=== PATIENT | female | born 1950 | race Hispanic/Latino ===

== ENCOUNTER → 2017-08-30 | Outpatient (CLI) | payer OTHER, MEDICARE ==
[~2017-08-30] MED LIST: LISI1TAB13 PO; PANT40TA25 PO
== END | disposition home or self-care (01) ==
LOC: RAH 09:09
PROVIDERS: ATTEND Internal Medicine Gastroenterology
DX: R10.13 Epigastric pain (principal); R11.2 Nausea with vomiting, unspecified
CPT/HCPCS: 76700

== ENCOUNTER → 2017-10-10 | Outpatient (CLI) | payer OTHER, MEDICARE | END | disposition home or self-care (01) | LOC: RAH 10:51 | PROVIDERS: ATTEND Internal Medicine | DX: R10.9 Unspecified abdominal pain (principal); R11.2 Nausea with vomiting, unspecified; R14.0 Abdominal distension (gaseous) | CPT/HCPCS: 78264; A9541 ==

== ENCOUNTER 2018-05-28 22:25 | Emergency (ER) | payer OTHER, MEDICARE ==
[~2018-05-28 22:25] MED LIST changes: +ACET-2743 PO; +DOCU240C25 PO; +ENOX30DI4 SQ; +ESOM40CA PO; +FAMO20TA8 PO; +LISI-613 PO; -LISI1TAB13 PO; +LORA0.5T2 PO; +METO10TA41 PO; +ONDA8TAB5 PO; +TRAM50TA4 PO
[2018-05-28 22:52] LABS: APPEARANCE,URINE Clear (CLEAR); BILIRUBIN,URINE Moderate (NEGATIVE); COLOR,URINE Dark Yellow (YELLOW); GLUCOSE, URINE (UA) Negative (NEGATIVE); KETONES,URINE 15 mg/dL (NEGATIVE); LEUKOCYTE ESTERASE ,URINE Trace (NEGATIVE); NITRATE,URINE Negative (NEGATIVE); OCCULT BLOOD,URINE Negative (NEGATIVE); PROTEIN,URINE Trace (NEGATIVE)
[2018-05-28 23:10] LABS: BACTERIA,URINE Few /HPF (None Seen); RBC,URINE 0-1 /HPF (0-1); WBC,URINE 0-1 /HPF (0-1)
[2018-05-28 23:11] LABS: MUCUS,URINE Few LPF (None Seen)
[2018-05-28 23:23] LABS: BASOPHILS % (AUTO) 0.4 % (0.0-5.0); EOSINOPHILS % (AUTO) 0.8 % (0.0-8.0); HEMATOCRIT 33.6 % (36-48); LYMPHOCYTES % (AUTO) 8.5 % (21.0-51.0); MEAN CORPUSCULAR HEMOGLOBIN 27.1 pg (27.0-33.0); MEAN CORPUSCULAR HGB CONC 32.1 g/dL (32.0-36.0); MEAN CORPUSCULAR VOLUME 84.4 fL (79-99); MONOCYTES % (AUTO) 7.1 % (3.0-13.0); NEUTROPHILS % (AUTO) 83.2 % (40.0-77.0); PLATELET COUNT (AUTO) 169 K/uL (130-400); RED BLOOD CELL COUNT(AUTO) 3.98 MIL/uL (4.00-5.50); RED CELL DISTRIBUTION WIDTH 14.3 % (11.0-15.5); WHITE BLOOD COUNT (AUTO) 6.9 K/uL (4.8-10.8)
[2018-05-28 23:28] LABS: CREATININE 0.8 mg/dL (0.5-1.5); POTASSIUM 3.7 mmol/L (3.5-5.1)
[2018-05-28 23:32] LABS: BILIRUBIN,TOTAL 0.7 mg/dL (0.2-1.0); TOTAL PROTEIN, SERUM 6.2 g/dL (6.0-8.3)
[2018-05-28] MEDS ORDERED: FAMOTIDINE/PF 20 MG/2 ML VIAL IV ONE (23:54)
[2018-05-28] MEDS ORDERED: SODIUM CHLORIDE 0.9% 1000ML 1,000 ML IV ONE (23:54)
[2018-05-28] MEDS ORDERED: HYOSCYAMINE SULFATE 0.125 MG TAB.SUBL SL ONE (23:54)
[2018-05-29] MEDS ORDERED: SUCRALFATE 1 GM TABLET ONE (01:13)
== END 2018-05-29 03:11 | disposition home or self-care (01) ==
LOC: EDH 22:25
DX: R10.13 Epigastric pain (principal); R11.2 Nausea with vomiting, unspecified; R19.7 Diarrhea, unspecified; I10 Essential (primary) hypertension; E11.9 Type 2 diabetes mellitus without complications; Z98.890 Other specified postprocedural states
CPT/HCPCS: 36415; 74021; 76705; 80053; 81001; 82550; 83690; 85025; 93005; 96361; 96374; 96375; 99284; J3490; J7030

== ENCOUNTER → 2018-06-20 | Outpatient (CLI) | payer OTHER, MEDICARE | END | disposition home or self-care (01) | LOC: RAH 13:13 | PROVIDERS: ATTEND Family Medicine | DX: M79.661 Pain in right lower leg (principal); M79.89 Other specified soft tissue disorders | CPT/HCPCS: 93971 ==

== ENCOUNTER 2018-10-04 14:17 | Emergency (ER) | payer OTHER, MEDICARE ==
[2018-10-04] MEDS ORDERED: CEPHALEXIN 500 MG CAPSULE ONE (14:22)
== END 2018-10-04 15:15 | disposition home or self-care (01) ==
LOC: EDH 14:17
DX: L03.114 Cellulitis of left upper limb (principal); E11.9 Type 2 diabetes mellitus without complications; I10 Essential (primary) hypertension
CPT/HCPCS: 99281

== ENCOUNTER 2018-10-04 18:42 | Emergency (ER) | payer OTHER, MEDICARE | END 2018-10-04 18:55 | disposition home or self-care (01) | LOC: EDH 18:42 | DX: L03.114 Cellulitis of left upper limb (principal); E11.9 Type 2 diabetes mellitus without complications; I10 Essential (primary) hypertension | CPT/HCPCS: 99281 ==

== ENCOUNTER 2018-12-22 20:12 | Inpatient (IN) | payer OTHER, MEDICARE | END 2018-12-26 15:24 | disposition home or self-care (01) | LOC: EDH 20:12 → EDHIP 23:50 → 3CH 12-23 13:28 | DX: K52.9 Noninfective gastroenteritis and colitis, unspecified (principal); I10 Essential (primary) hypertension; E11.9 Type 2 diabetes mellitus without complications ==

== ENCOUNTER 2018-12-30 00:56 | Emergency (ER) | payer OTHER, MEDICARE ==
[2018-12-30 02:38] LABS: BASOPHILS % (AUTO) 0.4 % (0.0-5.0); EOSINOPHILS % (AUTO) 0.6 % (0.0-8.0); HEMATOCRIT 28.8 % (36-48); LYMPHOCYTES % (AUTO) 15.9 % (21.0-51.0); MEAN CORPUSCULAR HEMOGLOBIN 26.4 pg (27.0-33.0); MONOCYTES % (AUTO) 15.7 % (3.0-13.0); NEUTROPHILS % (AUTO) 67.4 % (40.0-77.0); PLATELET COUNT (AUTO) 307 K/uL (130-400); RED CELL DISTRIBUTION WIDTH 16.6 % (11.0-15.5)
[2018-12-30 02:50] LABS: CREATININE 0.6 mg/dL (0.5-1.5); POTASSIUM 3.1 mmol/L (3.5-5.1)
[2018-12-30 02:54] LABS: ALBUMIN 2.6 g/dL (3.5-5.0); BILIRUBIN,TOTAL 0.4 mg/dL (0.2-1.0)
[2018-12-30 02:56] LABS: INR 0.92 (0.85-1.15); PARTIAL THROMBOPLASTIN TIME 25.9 SEC (26.3-35.5); PROTHROMBIN TIME 9.7 SEC (9.6-11.6)
[2018-12-30] MEDS ORDERED: IOHEXOL-350 75 ML VIAL IV ONE (04:28)
[2018-12-30 04:32] LABS: HEMATOCRIT 27.7 % (36-48)
[2018-12-30] MEDS ORDERED: POTASSIUM CHLORIDE 20 MEQ ERTAB PO ONE (07:34)
== END 2018-12-30 07:47 | disposition home or self-care (01) ==
LOC: EDH 00:56
DX: K52.9 Noninfective gastroenteritis and colitis, unspecified (principal); E11.9 Type 2 diabetes mellitus without complications; I10 Essential (primary) hypertension; Z98.51 Tubal ligation status
CPT/HCPCS: 36415; 71046; 71275; 80053; 82550; 84484; 85014; 85018; 85025; 85378; 85610; 85730; 93005; 99285; Q9967

== ENCOUNTER → 2019-03-16 | Outpatient (CLI) | payer OTHER, MEDICARE | END | disposition home or self-care (01) | LOC: OIH 15:50 | PROVIDERS: ATTEND Family Medicine | DX: M16.11 Unilateral primary osteoarthritis, right hip (principal) | CPT/HCPCS: 73502 ==

== ENCOUNTER 2019-07-20 00:58 | Emergency (ER) | payer MEDICARE ==
[2019-07-20] MEDS ORDERED: ACETAMINOPHEN 325 MG TAB ONE (01:32)
[2019-07-20] MEDS ORDERED: HYDRALAZINE HCL 25 MG TABLET ONE (01:32)
== END 2019-07-20 01:50 | disposition home or self-care (01) ==
LOC: EDH 00:58
DX: S90.862A Insect bite (nonvenomous), left foot, initial encounter (principal); I10 Essential (primary) hypertension; E11.9 Type 2 diabetes mellitus without complications; Z90.49 Acquired absence of other specified parts of digestive tract; Z98.890 Other specified postprocedural states; W57.XXXA Bitten or stung by nonvenomous insect and other nonvenomous arthropods, initial encounter; Y93.89 Activity, other specified; Y92.098 Other place in other non-institutional residence as the place of occurrence of the external cause; Y99.8 Other external cause status
CPT/HCPCS: 93005

== ENCOUNTER 2019-09-08 15:00 | Emergency (ER) | payer OTHER, MEDICARE ==
[2019-09-08 15:56] LABS: BASOPHILS % (AUTO) 0.8 % (0.0-5.0); HEMATOCRIT 38.3 % (36-48); LYMPHOCYTES % (AUTO) 34.1 % (21.0-51.0); MEAN CORPUSCULAR HEMOGLOBIN 25.6 pg (27.0-33.0); MEAN CORPUSCULAR HGB CONC 30.3 g/dL (32.0-36.0); MEAN CORPUSCULAR VOLUME 84.4 fL (79-99); MONOCYTES % (AUTO) 8.1 % (3.0-13.0); NEUTROPHILS % (AUTO) 55.7 % (40.0-77.0); PLATELET COUNT (AUTO) 257 K/uL (130-400); RED BLOOD CELL COUNT(AUTO) 4.54 MIL/uL (4.00-5.50); RED CELL DISTRIBUTION WIDTH 18.2 % (11.0-15.5)
[2019-09-08] MEDS ORDERED: CLINDAMYCIN 600 MG/D5% WATER 50 ML IV ONE (16:03)
[2019-09-08 16:11] LABS: CARBON DIOXIDE 30 mmol/L (21-32); CHLORIDE 103 mmol/L (101-111); CREATININE 0.6 mg/dL (0.5-1.5); GLOMERULAR FILTR. RATE CALC 105 mL/min (>60); GLUCOSE,RANDOM 103 mg/dL (70-105); POTASSIUM 3.8 mmol/L (3.5-5.1); SODIUM SERUM 139 mmol/L (136-145); UREA NITROGEN, BLOOD 15 mg/dL (7-18)
[2019-09-08 16:14] LABS: ALANINE AMINOTRANSFERASE 15 U/L (12-78); ALBUMIN 3.6 g/dL (3.5-5.0); ASPARTATE AMINOTRANSFERASE 17 U/L (10-37); BILIRUBIN,TOTAL 0.6 mg/dL (0.2-1.0); TOTAL PROTEIN, SERUM 7.2 g/dL (6.0-8.3)
[2019-09-08 16:16] LABS: CRP QUANTITATIVE < 2.00 mg/L (0.00-9.0)
[2019-09-08 17:11] LABS: ERYTHROCYTE SEDIMENTATION RATE 2 MM/HR (0-30)
== END 2019-09-08 16:55 | disposition home or self-care (01) ==
LOC: EDH 15:00
DX: I88.9 Nonspecific lymphadenitis, unspecified (principal); I10 Essential (primary) hypertension; E11.9 Type 2 diabetes mellitus without complications; Z98.890 Other specified postprocedural states
CPT/HCPCS: 36415; 76536; 80053; 85025; 85651; 86140; 87040 ×2; 93005; 96365; 99285; J3490

== ENCOUNTER → 2019-09-16 | Outpatient (CLI) | payer MEDICARE | END | disposition home or self-care (01) | LOC: RAH 14:31 | PROVIDERS: ATTEND Family Medicine | DX: R10.2 Pelvic and perineal pain (principal) | CPT/HCPCS: 76856 ==

== ENCOUNTER → 2019-09-28 | Outpatient (CLI) | payer MEDICARE | END | disposition home or self-care (01) | LOC: OIH 14:58 | PROVIDERS: ATTEND Family Medicine | DX: I10 Essential (primary) hypertension (principal); K44.9 Diaphragmatic hernia without obstruction or gangrene | CPT/HCPCS: 71046 ==

== ENCOUNTER 2020-02-15 11:34 | Emergency (ER) | payer OTHER, MEDICARE ==
[2020-02-15 12:09] LABS: BASOPHILS % (AUTO) 0.2 % (0.0-5.0); HEMATOCRIT 43.4 % (36-48); LYMPHOCYTES % (AUTO) 13.9 % (21.0-51.0); MEAN CORPUSCULAR HGB CONC 33.2 g/dL (32.0-36.0); MEAN CORPUSCULAR VOLUME 90.4 fL (79-99); MONOCYTES % (AUTO) 6.8 % (3.0-13.0); NEUTROPHILS % (AUTO) 78.8 % (40.0-77.0); PLATELET COUNT (AUTO) 189 K/uL (130-400); RED CELL DISTRIBUTION WIDTH 12.6 % (11.0-15.5); WHITE BLOOD COUNT (AUTO) 5.9 K/uL (4.8-10.8)
[2020-02-15 12:31] LABS: POTASSIUM 4.4 mmol/L (3.5-5.1)
[2020-02-15 12:36] LABS: ALBUMIN 3.2 g/dL (3.5-5.0); BILIRUBIN,TOTAL 0.6 mg/dL (0.2-1.0); TOTAL PROTEIN, SERUM 7.5 g/dL (6.0-8.3)
[2020-02-15 13:50] LABS: APPEARANCE,URINE Clear (CLEAR); BILIRUBIN,URINE Negative (NEGATIVE); COLOR,URINE Dark Yellow (YELLOW); GLUCOSE, URINE (UA) Negative (NEGATIVE); KETONES,URINE 40 mg/dL (NEGATIVE); LEUKOCYTE ESTERASE ,URINE Negative (NEGATIVE); NITRATE,URINE Negative (NEGATIVE); OCCULT BLOOD,URINE Negative (NEGATIVE); PH,URINE 5.5 (5.0-8.0); PROTEIN,URINE POS 1+ mg/dL (NEGATIVE)
[2020-02-15 14:20] LABS: BACTERIA,URINE Rare /HPF (None Seen); RBC,URINE 0-1 /HPF (0-1); SQUAMOUS EPITHELIAL CELL,UR Rare /HPF (0-2); WBC,URINE 0-1 /HPF (0-1)
== END 2020-02-15 15:10 | disposition home or self-care (01) ==
LOC: EDH 11:34
DX: S09.90XA Unspecified injury of head, initial encounter (principal); T42.4X5A Adverse effect of benzodiazepines, initial encounter; E11.9 Type 2 diabetes mellitus without complications; I10 Essential (primary) hypertension; W01.0XXA Fall on same level from slipping, tripping and stumbling without subsequent striking against object, initial encounter; Y93.89 Activity, other specified; Y92.89 Other specified places as the place of occurrence of the external cause; Y99.8 Other external cause status
CPT/HCPCS: 36415; 70450; 71045; 72125; 80053; 81001; 84484; 85025; 93005

== ENCOUNTER 2020-06-03 23:52 | Emergency (ER) | payer OTHER, MEDICARE ==
[~2020-06-03 23:52] MED LIST changes: -PANT40TA25 PO; +PANT40TA55 PO
[2020-06-04] MEDS ORDERED: METHYLPREDNISOLONE SOD SUCC 125MG/2ML VIAL ONE (00:18)
[2020-06-04 00:39] LABS: BASOPHILS % (AUTO) 0.6 % (0.0-5.0); EOSINOPHILS % (AUTO) 0.3 % (0.0-8.0); HEMATOCRIT 43.7 % (36-48); LYMPHOCYTES % (AUTO) 28.4 % (21.0-51.0); MEAN CORPUSCULAR HGB CONC 32.5 g/dL (32.0-36.0); MEAN CORPUSCULAR VOLUME 92.2 fL (79-99); MONOCYTES % (AUTO) 6.3 % (3.0-13.0); NEUTROPHILS % (AUTO) 64.1 % (40.0-77.0); PLATELET COUNT (AUTO) 237 K/uL (130-400); RED BLOOD CELL COUNT(AUTO) 4.74 MIL/uL (4.00-5.50); RED CELL DISTRIBUTION WIDTH 12.5 % (11.0-15.5); WHITE BLOOD COUNT (AUTO) 6.3 K/uL (4.8-10.8)
[2020-06-04 01:08] LABS: CREATININE 0.6 mg/dL (0.5-1.5); POTASSIUM 4.3 mmol/L (3.5-5.1)
[2020-06-04 01:13] LABS: ALBUMIN 4.1 g/dL (3.5-5.0); BILIRUBIN,TOTAL 0.8 mg/dL (0.2-1.0); TOTAL PROTEIN, SERUM 7.6 g/dL (6.0-8.3)
== END 2020-06-04 02:56 | disposition home or self-care (01) ==
LOC: EDH 23:52
DX: M79.18 Myalgia, other site (principal); M79.662 Pain in left lower leg; E11.9 Type 2 diabetes mellitus without complications; I10 Essential (primary) hypertension
CPT/HCPCS: 36415; 80053; 85025; 96374; 99283; J2930

== ENCOUNTER 2021-04-26 14:39 | Inpatient (IN) | payer OTHER, MEDICARE ==
[~2021-04-26] VITALS: Ht 154.9 cm; Wt 51.2 kg
[~2021-04-26 14:39] MED LIST changes: -LISI-613 PO; +LISI20TA24 PO
[2021-04-26 15:56] LABS: APPEARANCE,URINE Clear (CLEAR); BILIRUBIN,URINE Negative (NEGATIVE); COLOR,URINE Yellow (YELLOW); GLUCOSE, URINE (UA) Negative (NEGATIVE); KETONES,URINE Trace mg/dL (NEGATIVE); LEUKOCYTE ESTERASE ,URINE Small (NEGATIVE); NITRATE,URINE Positive (NEGATIVE); OCCULT BLOOD,URINE Negative (NEGATIVE); PROTEIN,URINE Negative (NEGATIVE)
[2021-04-26 16:09] LABS: BASOPHILS % (AUTO) 0.8 % (0.0-5.0); EOSINOPHILS % (AUTO) 1.1 % (0.0-8.0); HEMATOCRIT 41.2 % (36-48); LYMPHOCYTES % (AUTO) 33.8 % (21.0-51.0); MEAN CORPUSCULAR HEMOGLOBIN 29.8 pg (27.0-33.0); MEAN CORPUSCULAR HGB CONC 32.3 g/dL (32.0-36.0); MEAN CORPUSCULAR VOLUME 92.4 fL (79-99); MONOCYTES % (AUTO) 9.2 % (3.0-13.0); NEUTROPHILS % (AUTO) 54.9 % (40.0-77.0); PLATELET COUNT (AUTO) 216 K/uL (130-400); RED BLOOD CELL COUNT(AUTO) 4.46 MIL/uL (4.00-5.50); RED CELL DISTRIBUTION WIDTH 12.4 % (11.0-15.5); WHITE BLOOD COUNT (AUTO) 6.2 K/uL (4.8-10.8)
[2021-04-26 16:12] LABS: BACTERIA,URINE Moderate /HPF (None Seen); MUCUS,URINE Few LPF (None Seen); SQUAMOUS EPITHELIAL CELL,UR Few /HPF (0-2)
[2021-04-26 16:21] LABS: CREATININE 0.6 mg/dL (0.5-1.5); POTASSIUM 4.4 mmol/L (3.5-5.1)
[2021-04-26 16:23] LABS: INR 1.01 (0.85-1.15)
[2021-04-26 16:26] LABS: ALBUMIN 3.8 g/dL (3.5-5.0); BILIRUBIN,TOTAL 1.3 mg/dL (0.2-1.0); TOTAL PROTEIN, SERUM 7.3 g/dL (6.0-8.3)
[2021-04-26] MEDS ORDERED: IOHEXOL-350 75 ML VIAL IV ONE (17:13)
[2021-04-26] MEDS ORDERED: CEFTRIAXONE 1G VIAL IVP ONE (19:00)
[2021-04-26] MEDS ORDERED: NAPR500T6 PO (19:56)
[2021-04-26] MEDS ORDERED: LISI20TA24 PO (19:56)
[2021-04-26] MEDS ORDERED: PANT40TA54 PO (19:56)
[2021-04-26] MEDS ORDERED: FOLIC ACID PO (19:56)
[2021-04-26] MEDS ORDERED: AEC81 PO (19:56)
[2021-04-26] MEDS ORDERED: TRAM50TA4 PO (19:56)
[2021-04-26] MEDS ORDERED: PANTOPRAZOLE 40 MG/VIAL IVP SCH (20:00)
[2021-04-26] MEDS: CEFTRIAXONE 1G VIAL IV SCH (21:00)
[2021-04-26] MEDS: PANTOPRAZOLE 40 MG/VIAL IVP SCH (21:00)
[2021-04-26] MEDS ORDERED: HYDRALAZINE 20MG/ML VIAL IV PRN (21:00)
[2021-04-26] MEDS: 0.9%NACL 1000ML 1,000 ML IV SCH (21:17)
[2021-04-26 21:23] LABS: BASOPHILS % (AUTO) 1.1 % (0.0-5.0); EOSINOPHILS % (AUTO) 1.6 % (0.0-8.0); HEMATOCRIT 40.9 % (36-48); LYMPHOCYTES % (AUTO) 31.2 % (21.0-51.0); MEAN CORPUSCULAR HEMOGLOBIN 30.2 pg (27.0-33.0); MEAN CORPUSCULAR HGB CONC 32.5 g/dL (32.0-36.0); MEAN CORPUSCULAR VOLUME 92.7 fL (79-99); MONOCYTES % (AUTO) 8.4 % (3.0-13.0); NEUTROPHILS % (AUTO) 57.5 % (40.0-77.0); PLATELET COUNT (AUTO) 229 K/uL (130-400); RED BLOOD CELL COUNT(AUTO) 4.41 MIL/uL (4.00-5.50); RED CELL DISTRIBUTION WIDTH 12.3 % (11.0-15.5); WHITE BLOOD COUNT (AUTO) 6.1 K/uL (4.8-10.8)
[2021-04-26 21:42] LABS: INR 1.02 (0.85-1.15); PROTHROMBIN TIME 11.1 SEC (9.6-11.6)
[2021-04-26 21:43] LABS: PARTIAL THROMBOPLASTIN TIME 25.6 SEC (26.3-35.5)
[2021-04-26 21:45] VITALS: BP 171/86
[2021-04-27] VITALS (7 sets, daily range): BP systolic 108–213; BP diastolic 49–84
[2021-04-27 03:54] LABS: BASOPHILS % (AUTO) 0.6 % (0.0-5.0); EOSINOPHILS % (AUTO) 1.4 % (0.0-8.0); HEMATOCRIT 41.3 % (36-48); LYMPHOCYTES % (AUTO) 16.1 % (21.0-51.0); MEAN CORPUSCULAR HEMOGLOBIN 29.6 pg (27.0-33.0); MEAN CORPUSCULAR HGB CONC 32.2 g/dL (32.0-36.0); MEAN CORPUSCULAR VOLUME 91.8 fL (79-99); MONOCYTES % (AUTO) 6.4 % (3.0-13.0); NEUTROPHILS % (AUTO) 75.3 % (40.0-77.0); PLATELET COUNT (AUTO) 219 K/uL (130-400); RED CELL DISTRIBUTION WIDTH 12.5 % (11.0-15.5); WHITE BLOOD COUNT (AUTO) 8.1 K/uL (4.8-10.8)
[2021-04-27 04:04] LABS: CREATININE 0.6 mg/dL (0.5-1.5); MAGNESIUM 1.7 mg/dL (1.80-2.40); PHOSPHORUS 3.5 mg/dL (2.5-4.9); POTASSIUM 3.6 mmol/L (3.5-5.1)
[2021-04-27] MEDS: PANTOPRAZOLE 40 MG/VIAL IVP SCH ×2 (09:41→21:17)
[2021-04-27 13:00] LABS: BASOPHILS % (AUTO) 0.8 % (0.0-5.0); EOSINOPHILS % (AUTO) 1.8 % (0.0-8.0); LYMPHOCYTES % (AUTO) 31.3 % (21.0-51.0); MEAN CORPUSCULAR HEMOGLOBIN 29.9 pg (27.0-33.0); MEAN CORPUSCULAR HGB CONC 32.8 g/dL (32.0-36.0); MEAN CORPUSCULAR VOLUME 91.3 fL (79-99); MONOCYTES % (AUTO) 8.4 % (3.0-13.0); NEUTROPHILS % (AUTO) 57.4 % (40.0-77.0); PLATELET COUNT (AUTO) 232 K/uL (130-400); RED BLOOD CELL COUNT(AUTO) 4.38 MIL/uL (4.00-5.50); RED CELL DISTRIBUTION WIDTH 12.6 % (11.0-15.5); WHITE BLOOD COUNT (AUTO) 6.2 K/uL (4.8-10.8)
[2021-04-27] MEDS: 0.9%NACL 1000ML 1,000 ML IV SCH (17:00)
[2021-04-27] MEDS ORDERED: MORPHINE 2 MG SYG IVP PRN (19:00)
[2021-04-27] MEDS ORDERED: ACETAMINOPHEN 325 MG TAB PO PRN (19:00)
[2021-04-27] MEDS ORDERED: DEXTROSE 50%-WATER 50 ML DISP.SYRIN IV PRN (19:30)
[2021-04-27] MEDS ORDERED: GLUCAGON 1MG KIT 1 MG ML IM PRN (19:30)
[2021-04-27] MEDS: INSULIN HUMULIN R 100 UNIT/ML 3ML SQ SCH (21:00)
[2021-04-27] MEDS: CEFTRIAXONE 1G VIAL IV SCH (21:17)
[2021-04-27] MEDS: METRONIDAZOLE 500MG/100ML BAG 100 ML IVPB SCH (22:13)
[2021-04-28] VITALS: BP 118/56
[2021-04-28] MEDS: TRAMADOL HCL 50 MG TABLET PO PRN ×2 (00:21→20:31)
[2021-04-28 04:00] VITALS: BP 142/63
[2021-04-28 04:57] LABS: BASOPHILS % (AUTO) 0.9 % (0.0-5.0); EOSINOPHILS % (AUTO) 4.2 % (0.0-8.0); HEMATOCRIT 36.8 % (36-48); LYMPHOCYTES % (AUTO) 30.8 % (21.0-51.0); MEAN CORPUSCULAR HEMOGLOBIN 29.8 pg (27.0-33.0); MEAN CORPUSCULAR HGB CONC 32.9 g/dL (32.0-36.0); MEAN CORPUSCULAR VOLUME 90.6 fL (79-99); MONOCYTES % (AUTO) 10.6 % (3.0-13.0); NEUTROPHILS % (AUTO) 53.1 % (40.0-77.0); PLATELET COUNT (AUTO) 210 K/uL (130-400); RED BLOOD CELL COUNT(AUTO) 4.06 MIL/uL (4.00-5.50); RED CELL DISTRIBUTION WIDTH 12.4 % (11.0-15.5); WHITE BLOOD COUNT (AUTO) 5.5 K/uL (4.8-10.8)
[2021-04-28 05:13] LABS: BILIRUBIN,TOTAL 1.2 mg/dL (0.2-1.0); CREATININE 0.8 mg/dL (0.5-1.5); POTASSIUM 3.5 mmol/L (3.5-5.1)
[2021-04-28] MEDS: METRONIDAZOLE 500MG/100ML BAG 100 ML IVPB SCH (05:33)
[2021-04-28 07:15] VITALS: BP 128/62
[2021-04-28] MEDS: DOCUSATE SODIUM 100 MG CAP PO SCH (08:46)
[2021-04-28] MEDS: FOLIC ACID 1 MG TABLET PO SCH (08:47)
[2021-04-28] MEDS: LISINOPRIL 20 MG TABLET PO SCH (08:47)
[2021-04-28 08:56] LABS: HEMATOCRIT 39.9 % (36-48)
[2021-04-28] MEDS: PANTOPRAZOLE 40 MG/VIAL IVP SCH ×2 (09:27→20:26)
[2021-04-28 11:10] VITALS: BP 165/93
[2021-04-28] MEDS: INSULIN HUMULIN R 100 UNIT/ML 3ML SQ SCH ×3 (11:30→20:22)
[2021-04-28] MEDS: 0.9%NACL 1000ML 1,000 ML IV SCH (13:00)
[2021-04-28 14:07] LABS: HEMATOCRIT 37.6 % (36-48)
[2021-04-28 15:10] VITALS: BP 127/59
[2021-04-28] MEDS: METRONIDAZOLE 500 MG TABLET PO SCH (17:55)
[2021-04-28 20:16] VITALS: BP 132/57
[2021-04-28] MEDS: CEFTRIAXONE 1G VIAL IV SCH (20:26)
[2021-04-28 20:44] LABS: HEMATOCRIT 34.7 % (36-48)
[2021-04-29] VITALS (21 sets, daily range): BP systolic 93–181; BP diastolic 48–89
[2021-04-29] MEDS: METRONIDAZOLE 500 MG TABLET PO SCH ×4 (00:28→16:51)
[2021-04-29 04:36] LABS: HEMATOCRIT 39.5 % (36-48); MEAN CORPUSCULAR HEMOGLOBIN 29.8 pg (27.0-33.0); MEAN CORPUSCULAR HGB CONC 32.7 g/dL (32.0-36.0); MEAN CORPUSCULAR VOLUME 91.2 fL (79-99); RED BLOOD CELL COUNT(AUTO) 4.33 MIL/uL (4.00-5.50); RED CELL DISTRIBUTION WIDTH 12.5 % (11.0-15.5)
[2021-04-29 04:58] LABS: ALBUMIN 2.9 g/dL (3.5-5.0); BILIRUBIN,TOTAL 0.9 mg/dL (0.2-1.0); CREATININE 0.7 mg/dL (0.5-1.5); POTASSIUM 3.6 mmol/L (3.5-5.1); TOTAL PROTEIN, SERUM 6.3 g/dL (6.0-8.3)
[2021-04-29] MEDS: INSULIN HUMULIN R 100 UNIT/ML 3ML SQ SCH ×4 (05:44→20:14)
[2021-04-29] MEDS: PANTOPRAZOLE 40 MG/VIAL IVP SCH ×2 (09:00→20:13)
[2021-04-29] MEDS ORDERED: PROPOFOL 10 MG/ML 20ML VIAL IV ONE (10:01)
[2021-04-29] MEDS ORDERED: LIDOCAINE PF 100MG/5ML (2%) SYRINGE 5ML ONE (10:03)
[2021-04-29] MEDS: DOCUSATE SODIUM 100 MG CAP PO SCH (13:39)
[2021-04-29] MEDS: FOLIC ACID 1 MG TABLET PO SCH (13:39)
[2021-04-29] MEDS: LISINOPRIL 20 MG TABLET PO SCH (13:39)
[2021-04-29] MEDS ORDERED: MAGNESIUM CITRATE 296 ML SOLUTION PO SCH (14:00)
[2021-04-29] MEDS: 0.9%NACL 1000ML 1,000 ML IV SCH (16:51)
[2021-04-29] MEDS: ONDANSETRON 4MG INJ IV PRN ×2 (18:26→20:13)
[2021-04-29] MEDS: CEFTRIAXONE 1G VIAL IV SCH (20:13)
[2021-04-29] MEDS: TRAMADOL HCL 50 MG TABLET PO PRN (20:29)
[2021-04-30] MEDS: ONDANSETRON 4MG INJ IV PRN (00:03)
[2021-04-30] MEDS: METRONIDAZOLE 500 MG TABLET PO SCH ×2 (00:03→08:25)
[2021-04-30 03:28] VITALS: BP 145/73
[2021-04-30] MEDS: 0.9%NACL 1000ML 1,000 ML IV SCH (04:30)
[2021-04-30 04:32] LABS: HEMATOCRIT 36.2 % (36-48); MEAN CORPUSCULAR HEMOGLOBIN 29.6 pg (27.0-33.0); MEAN CORPUSCULAR HGB CONC 32.6 g/dL (32.0-36.0); MEAN CORPUSCULAR VOLUME 90.7 fL (79-99); RED BLOOD CELL COUNT(AUTO) 3.99 MIL/uL (4.00-5.50); RED CELL DISTRIBUTION WIDTH 12.4 % (11.0-15.5); WHITE BLOOD COUNT (AUTO) 7.1 K/uL (4.8-10.8)
[2021-04-30 04:51] LABS: CREATININE 0.6 mg/dL (0.5-1.5); POTASSIUM 3.1 mmol/L (3.5-5.1)
[2021-04-30] MEDS: INSULIN HUMULIN R 100 UNIT/ML 3ML SQ SCH ×2 (04:58→11:30)
[2021-04-30] MEDS ORDERED: POTASSIUM CHLORIDE 10% ELIXIR 20 MEQ/15 ML UDCUP PO PRN (07:00)
[2021-04-30 07:10] VITALS: BP 124/66
[2021-04-30] MEDS: PANTOPRAZOLE 40 MG/VIAL IVP SCH (08:25)
[2021-04-30] MEDS: LISINOPRIL 20 MG TABLET PO SCH (08:25)
[2021-04-30] MEDS: KCL 20 MEQ ERTAB PO PRN ×2 (08:25→12:46)
[2021-04-30] MEDS: FOLIC ACID 1 MG TABLET PO SCH (08:25)
[2021-04-30] MEDS: DOCUSATE SODIUM 100 MG CAP PO SCH (08:26)
[2021-04-30 11:10] VITALS: BP 108/52
[2021-04-30] MEDS ORDERED: LEVO750T46 PO (15:17)
== END 2021-04-30 16:00 | disposition home or self-care (01) | DRG 690 ==
LOC: EDH 14:39 → OBSVTOIN 20:45 → EDHIP 20:45 → 3AH 21:53
PROVIDERS: ADMIT Internal Medicine Critical Care Medicine; ATTEND Internal Medicine Critical Care Medicine
DX: N39.0 Urinary tract infection, site not specified (principal); K29.70 Gastritis, unspecified, without bleeding; J47.9 Bronchiectasis, uncomplicated; K22.70 Barrett's esophagus without dysplasia; B96.20 Unspecified Escherichia coli [E. coli] as the cause of diseases classified elsewhere; K21.9 Gastro-esophageal reflux disease without esophagitis; I10 Essential (primary) hypertension; K59.09 Other constipation; G89.29 Other chronic pain; Z96.641 Presence of right artificial hip joint; E11.9 Type 2 diabetes mellitus without complications; Z79.82 Long term (current) use of aspirin; Z79.899 Other long term (current) drug therapy; Z87.19 Personal history of other diseases of the digestive system; Z85.831 Personal history of malignant neoplasm of soft tissue; Z85.028 Personal history of other malignant neoplasm of stomach; Z86.73 Personal history of transient ischemic attack (TIA), and cerebral infarction without residual deficits
CPT/HCPCS: 36415; 43239; 74177; 80048; 80053; 81001; 82270; 82948; 83735; 84100; 84132; 85014; 85018; 85025; 85027; 85610; 85730; 86850; 86900; 86901; 87077; 87088; 87186; A4606; C9113; G0378; J0360; J0696; J2001; J2405; J2704; J3490; J7030; Q9967

== ENCOUNTER 2021-05-01 21:06 | Inpatient (IN) | payer OTHER, MEDICARE ==
[~2021-05-01] VITALS: Ht 154.9 cm; Wt 52.0 kg
[~2021-05-01 21:06] MED LIST changes: -DOCU240C25 PO; -ENOX30DI4 SQ; -FAMO20TA8 PO; +FOLIC ACID PO; +LEVO750T46 PO; -ONDA8TAB5 PO; +PANT40TA54 PO
[2021-05-01] MEDS ORDERED: IOHEXOL 350 MG/ML 100ML INFUS..BTL IV ONE (21:53)
[2021-05-01 22:08] LABS: BASOPHILS % (AUTO) 0.7 % (0.0-5.0); HEMATOCRIT 41.2 % (36-48); LYMPHOCYTES % (AUTO) 20.3 % (21.0-51.0); MEAN CORPUSCULAR HGB CONC 32.3 g/dL (32.0-36.0); MONOCYTES % (AUTO) 10.3 % (3.0-13.0); NEUTROPHILS % (AUTO) 67.4 % (40.0-77.0); PLATELET COUNT (AUTO) 237 K/uL (130-400); RED BLOOD CELL COUNT(AUTO) 4.43 MIL/uL (4.00-5.50); RED CELL DISTRIBUTION WIDTH 12.8 % (11.0-15.5); WHITE BLOOD COUNT (AUTO) 7.1 K/uL (4.8-10.8)
[2021-05-01 22:21] LABS: INR 1.05 (0.85-1.15); PROTHROMBIN TIME 11.4 SEC (9.6-11.6)
[2021-05-01 22:23] LABS: POTASSIUM 4.2 mmol/L (3.5-5.1)
[2021-05-01 22:28] LABS: ALBUMIN 3.9 g/dL (3.5-5.0); BILIRUBIN,TOTAL 0.7 mg/dL (0.2-1.0); TOTAL PROTEIN, SERUM 7.2 g/dL (6.0-8.3)
[2021-05-01 22:38] LABS: B-TYPE NATRIURETIC PEPTIDE 51 pg/mL (0-100)
[2021-05-02] MEDS: ENOXAPARIN SODIUM 30 MG/0.3 ML SQ SCH (09:00)
[2021-05-02] MEDS: ASPIRIN 325MG TAB PO SCH (09:00)
[2021-05-02 09:47] LABS: THYROID STIMULATING HORMONE 3.33 uIU/mL (0.36-3.74)
[2021-05-02 11:33] LABS: APPEARANCE,URINE Clear (CLEAR); BILIRUBIN,URINE Negative (NEGATIVE); COLOR,URINE Yellow (YELLOW); GLUCOSE, URINE (UA) Negative (NEGATIVE); KETONES,URINE 40 mg/dL (NEGATIVE); LEUKOCYTE ESTERASE ,URINE Trace (NEGATIVE); NITRATE,URINE Negative (NEGATIVE); OCCULT BLOOD,URINE Negative (NEGATIVE); PROTEIN,URINE Negative (NEGATIVE); UROBILINOGEN,URINE 0.2 mg/dL (0.2-1.0)
[2021-05-02 12:12] LABS: BACTERIA,URINE Rare /HPF (None Seen); RBC,URINE 0-1 /HPF (0-1); SQUAMOUS EPITHELIAL CELL,UR Rare /HPF (0-2); WBC,URINE 0-1 /HPF (0-1)
[2021-05-02] MEDS ORDERED: LISI20TA24 PO (13:13)
[2021-05-02] MEDS: ATORVASTATIN 40 MG TABLET PO SCH (20:07)
[2021-05-02] MEDS ORDERED: TRAMADOL HCL 50 MG TABLET PO PRN (20:30)
[2021-05-02] MEDS ORDERED: ASPIRIN 81 MG EC TAB PO ONE (20:30)
[2021-05-02] MEDS: LORAZEPAM 0.5 MG TABLET PO SCH (21:00)
[2021-05-02] MEDS: SUCRALFATE 1 GM TABLET PO SCH (21:35)
[2021-05-03] VITALS (8 sets, daily range): BP systolic 98–174; BP diastolic 49–71
[2021-05-03] MEDS: SUCRALFATE 1 GM TABLET PO SCH ×2 (03:28→16:20)
[2021-05-03] MEDS ORDERED: HYDRALAZINE 20MG/ML VIAL IV PRN (05:00)
[2021-05-03] MEDS ORDERED: ONDANSETRON 4MG INJ IVP PRN (05:00)
[2021-05-03] MEDS: PANTOPRAZOLE 40 MG TAB DR PO SCH ×2 (06:24→16:19)
[2021-05-03 06:27] LABS: CREATININE 0.5 mg/dL (0.5-1.5); POTASSIUM 3.6 mmol/L (3.5-5.1)
[2021-05-03 06:28] LABS: HEMOGLOBIN A1C 6.3 % (4.0-6.0)
[2021-05-03] MEDS: ASPIRIN 325MG TAB PO SCH (09:00)
[2021-05-03] MEDS: LISINOPRIL 20 MG TABLET PO SCH (09:00)
[2021-05-03] MEDS: ENOXAPARIN SODIUM 30 MG/0.3 ML SQ SCH (16:20)
[2021-05-03] MEDS: ASPIRIN 81 MG EC TAB PO SCH (16:20)
[2021-05-03] MEDS: ATORVASTATIN 40 MG TABLET PO SCH (20:38)
[2021-05-03] MEDS: LORAZEPAM 0.5 MG TABLET PO SCH (20:39)
[2021-05-04] MEDS: SUCRALFATE 1 GM TABLET PO SCH ×4 (00:20→17:33)
[2021-05-04 03:48] VITALS: BP 125/56
[2021-05-04 05:20] LABS: HEMATOCRIT 38.4 % (36-48); MEAN CORPUSCULAR HEMOGLOBIN 29.1 pg (27.0-33.0); RED BLOOD CELL COUNT(AUTO) 4.22 MIL/uL (4.00-5.50); RED CELL DISTRIBUTION WIDTH 12.8 % (11.0-15.5); WHITE BLOOD COUNT (AUTO) 4.5 K/uL (4.8-10.8)
[2021-05-04 05:32] LABS: CREATININE 0.7 mg/dL (0.5-1.5); POTASSIUM 4.3 mmol/L (3.5-5.1)
[2021-05-04] MEDS: PANTOPRAZOLE 40 MG TAB DR PO SCH ×2 (06:11→17:33)
[2021-05-04 07:00] VITALS: BP 154/68
[2021-05-04] MEDS: ENOXAPARIN SODIUM 30 MG/0.3 ML SQ SCH (09:00)
[2021-05-04] MEDS: ASPIRIN 81 MG EC TAB PO SCH (09:00)
[2021-05-04] MEDS: LISINOPRIL 20 MG TABLET PO SCH (09:00)
[2021-05-04] MEDS ORDERED: IOHEXOL-350 75 ML VIAL IV ONE (09:40)
[2021-05-04 11:00] VITALS: BP 111/54
[2021-05-04 16:00] VITALS: BP 124/62
[2021-05-04 20:05] VITALS: BP 107/61
[2021-05-04] MEDS: LORAZEPAM 0.5 MG TABLET PO SCH (20:19)
[2021-05-04] MEDS: ATORVASTATIN 40 MG TABLET PO SCH (20:19)
[2021-05-04 23:39] VITALS: BP 101/52
[2021-05-05] MEDS: SUCRALFATE 1 GM TABLET PO SCH ×2 (00:09→05:16)
[2021-05-05 04:01] VITALS: BP 117/64
[2021-05-05] MEDS ORDERED: LACTULOSE 20 GM/30 ML UDCUP PO PRN (05:30)
[2021-05-05 08:00] VITALS: BP 109/54
[2021-05-05] MEDS: ASPIRIN 81 MG EC TAB PO SCH (08:10)
[2021-05-05] MEDS: PANTOPRAZOLE 40 MG TAB DR PO SCH (08:11)
[2021-05-05] MEDS: ENOXAPARIN SODIUM 30 MG/0.3 ML SQ SCH (08:11)
[2021-05-05] MEDS: LISINOPRIL 20 MG TABLET PO SCH (09:00)
[2021-05-05] MEDS ORDERED: ASPI-1005 PO (09:47)
[2021-05-05] MEDS ORDERED: SIMV-43 PO (09:47)
[2021-05-05 11:17] VITALS: BP 112/55
== END 2021-05-05 12:20 | disposition home or self-care (01) | DRG 552 ==
LOC: EDH 21:06 → OBSVTOIN 05-02 06:59 → EDHIP 05-02 06:59 → 4AH 05-03 00:30
PROVIDERS: ADMIT Internal Medicine Pulmonary Disease; ATTEND Internal Medicine Pulmonary Disease
DX: M48.02 Spinal stenosis, cervical region (principal); E78.5 Hyperlipidemia, unspecified; E11.9 Type 2 diabetes mellitus without complications; K21.9 Gastro-esophageal reflux disease without esophagitis; I10 Essential (primary) hypertension; K29.70 Gastritis, unspecified, without bleeding; F41.9 Anxiety disorder, unspecified; Z96.641 Presence of right artificial hip joint; Z79.82 Long term (current) use of aspirin; Z79.899 Other long term (current) drug therapy; Z86.73 Personal history of transient ischemic attack (TIA), and cerebral infarction without residual deficits
CPT/HCPCS: 36415; 70450; 70496; 70498; 70544; 70547; 70551; 71045; 71250; 72141; 74178; 78306; 80048; 80053; 80061; 81001; 82550; 82948; 83036; 83721; 83880; 84443; 84484; 85025; 85027; 85610; 85730; 93005; 96374; A9503; C8929; G0378; J0360; J1650; J2405; Q9967

== ENCOUNTER 2022-02-20 15:41 | Emergency (ER) | payer OTHER, MEDICARE ==
[~2022-02-20] VITALS: Ht 154.9 cm; Wt 54.0 kg
[~2022-02-20 15:41] MED LIST changes: +ASPI-1005 PO; -FOLIC ACID PO; -LEVO750T46 PO; +NAPR-1196 PO; -PANT40TA54 PO; -PANT40TA55 PO; +SIMV-43 PO
[2022-02-20 15:45] VITALS: BP 116/58
[2022-02-20 16:36] LABS: BASOPHILS % (AUTO) 0.4 % (0.0-5.0); EOSINOPHILS % (AUTO) 0.2 % (0.0-8.0); HEMATOCRIT 39.5 % (36-48); LYMPHOCYTES % (AUTO) 14.4 % (21.0-51.0); MEAN CORPUSCULAR HEMOGLOBIN 29.7 pg (27.0-33.0); MEAN CORPUSCULAR HGB CONC 32.2 g/dL (32.0-36.0); MEAN CORPUSCULAR VOLUME 92.5 fL (79-99); MONOCYTES % (AUTO) 6.8 % (3.0-13.0); NEUTROPHILS % (AUTO) 77.7 % (40.0-77.0); PLATELET COUNT (AUTO) 254 K/uL (130-400); RED BLOOD CELL COUNT(AUTO) 4.27 MIL/uL (4.00-5.50); RED CELL DISTRIBUTION WIDTH 13.5 % (11.0-15.5); WHITE BLOOD COUNT (AUTO) 10.6 K/uL (4.8-10.8)
[2022-02-20 16:40] LABS: APPEARANCE,URINE CLOUDY (CLEAR); BILIRUBIN,URINE MODERATE (NEGATIVE); COLOR,URINE YELLOW (YELLOW); GLUCOSE, URINE (UA) NEGATIVE (NEGATIVE); KETONES,URINE 5 mg/dL (NEGATIVE); LEUKOCYTE ESTERASE ,URINE SMALL (NEGATIVE); NITRATE,URINE POSITIVE (NEGATIVE); OCCULT BLOOD,URINE NEGATIVE (NEGATIVE); PH,URINE 5.5 (5.0-8.0); PROTEIN,URINE 30 mg/dL (NEGATIVE)
[2022-02-20 16:45] LABS: CREATININE 0.9 mg/dL (0.5-1.5); POTASSIUM 4.2 mmol/L (3.5-5.1)
[2022-02-20 16:50] LABS: ALBUMIN 3.4 g/dL (3.5-5.0); TOTAL PROTEIN, SERUM 7.1 g/dL (6.0-8.3)
[2022-02-20 17:22] LABS: RBC,URINE 0-1 /HPF (0-1)
[2022-02-20 17:23] LABS: BACTERIA,URINE Moderate /HPF (None Seen); MUCUS,URINE Few LPF (None Seen); SQUAMOUS EPITHELIAL CELL,UR Rare /HPF (0-2)
[2022-02-20] MEDS ORDERED: CEPH500B PO (18:33)
== END 2022-02-20 18:55 | disposition home or self-care (01) ==
LOC: EDH 15:41
DX: N39.0 Urinary tract infection, site not specified (principal); E11.9 Type 2 diabetes mellitus without complications; I10 Essential (primary) hypertension; Z79.1 Long term (current) use of non-steroidal anti-inflammatories (NSAID); Z79.82 Long term (current) use of aspirin; Z79.899 Other long term (current) drug therapy; Z86.73 Personal history of transient ischemic attack (TIA), and cerebral infarction without residual deficits; Z90.49 Acquired absence of other specified parts of digestive tract; Z98.84 Bariatric surgery status
CPT/HCPCS: 36415; 74176; 80053; 81001; 83690; 85025; 87077; 87088; 87186

== ENCOUNTER → 2022-05-12 | Outpatient (CLI) | payer OTHER, MEDICARE ==
[~2022-05-12] MED LIST changes: +CEPH500B PO
== END | disposition home or self-care (01) ==
LOC: SHCH 15:38
PROVIDERS: ATTEND Internal Medicine Cardiovascular Disease
DX: I51.7 Cardiomegaly (principal); I51.89 Other ill-defined heart diseases; I31.39 Other pericardial effusion (noninflammatory); R00.2 Palpitations; R00.1 Bradycardia, unspecified; R01.1 Cardiac murmur, unspecified
CPT/HCPCS: 93306

== ENCOUNTER → 2022-10-10 | Outpatient (CLI) | payer OTHER, MEDICARE | END | disposition home or self-care (01) | LOC: RAH 15:34 | PROVIDERS: ATTEND Family Medicine | DX: Z12.31 Encounter for screening mammogram for malignant neoplasm of breast (principal) | CPT/HCPCS: 77067 ==

== ENCOUNTER 2023-01-28 21:07 | Emergency (ER) | payer OTHER, MEDICARE ==
[2023-01-28] MEDS ORDERED: LABETALOL 20MG SYG IV ONE (22:30)
[2023-01-28] MEDS ORDERED: ACETAMINOPHEN 500 MG TABLET PO ONE (22:30)
[2023-01-28] MEDS ORDERED: NAPROXEN 250 MG TAB PO ONE (23:30)
[2023-01-28] MEDS ORDERED: ONDANSETRON 4MG INJ ONE (23:48)
[2023-01-29] MEDS ORDERED: ONDANSETRON 4MG INJ IVP ONE
[2023-01-29 02:02] VITALS: BP 168/72; PULSE 72; RESP 16; O2SAT 99
== END 2023-01-29 02:05 | disposition home or self-care (01) ==
LOC: EDH 21:07
DX: S83.92XA Sprain of unspecified site of left knee, initial encounter (principal); E11.9 Type 2 diabetes mellitus without complications; I10 Essential (primary) hypertension; Z79.82 Long term (current) use of aspirin; Z79.899 Other long term (current) drug therapy; Z86.73 Personal history of transient ischemic attack (TIA), and cerebral infarction without residual deficits; Z90.49 Acquired absence of other specified parts of digestive tract; W01.10XA Fall on same level from slipping, tripping and stumbling with subsequent striking against unspecified object, initial encounter; Y93.89 Activity, other specified; Y92.89 Other specified places as the place of occurrence of the external cause; Y99.8 Other external cause status
CPT/HCPCS: 99285; 96374; 73700; 96375; 73502; 73552; 73562; 93005; J2405

== ENCOUNTER → 2023-01-31 | Outpatient (CLI) | payer OTHER, MEDICARE | END | disposition home or self-care (01) | LOC: OIH 12:22 | PROVIDERS: ATTEND Family Medicine | DX: S83.62XD Sprain of the superior tibiofibular joint and ligament, left knee, subsequent encounter (principal); I70.0 Atherosclerosis of aorta; M16.12 Unilateral primary osteoarthritis, left hip; W18.30XD Fall on same level, unspecified, subsequent encounter | CPT/HCPCS: 72170; 73552 ==

== ENCOUNTER 2023-06-02 17:08 | Emergency (ER) | payer OTHER, MEDICARE ==
[~2023-06-02] VITALS: Ht 154.9 cm; Wt 49.0 kg
[2023-06-02 17:13] VITALS: BP 201/88; PULSE 47; RESP 16; O2SAT 100
[2023-06-02] MEDS ORDERED: METH4TAB3 PO (18:48)
[2023-06-02] MEDS ORDERED: DEXAMETHASONE SOD PHOSPHATE 4 MG/ML 1ML VIAL IM ONE (19:00)
== END 2023-06-02 18:59 | disposition home or self-care (01) ==
LOC: EDH 17:08
DX: M54.12 Radiculopathy, cervical region (principal); M47.892 Other spondylosis, cervical region; I10 Essential (primary) hypertension; E78.00 Pure hypercholesterolemia, unspecified; E11.9 Type 2 diabetes mellitus without complications; Z79.82 Long term (current) use of aspirin; Z79.899 Other long term (current) drug therapy; Z90.49 Acquired absence of other specified parts of digestive tract; Z98.890 Other specified postprocedural states
CPT/HCPCS: 99283; 72040; 96372; J1100

== ENCOUNTER → 2023-10-14 | Outpatient (CLI) | payer OTHER, MEDICARE ==
[~2023-10-14] MED LIST changes: +METH4TAB3 PO
== END | disposition home or self-care (01) ==
LOC: RAH 11:23
PROVIDERS: ATTEND Family Medicine
DX: Z12.31 Encounter for screening mammogram for malignant neoplasm of breast (principal)
CPT/HCPCS: 77067

== ENCOUNTER 2023-10-17 11:31 | Emergency (ER) | payer OTHER, MEDICARE ==
[~2023-10-17] VITALS: Ht 154.9 cm; Wt 52.6 kg
[2023-10-17] MEDS: IBUPROFEN 600 MG TABLET PO ONE (13:26)
[2023-10-17 15:35] VITALS: BP 134/75; PULSE 76; RESP 18; O2SAT 99
== END 2023-10-17 15:39 | disposition home or self-care (01) ==
LOC: EDH 11:31
DX: S39.012A Strain of muscle, fascia and tendon of lower back, initial encounter (principal); W01.0XXA Fall on same level from slipping, tripping and stumbling without subsequent striking against object, initial encounter; Y93.89 Activity, other specified; Y92.89 Other specified places as the place of occurrence of the external cause; Y99.8 Other external cause status
CPT/HCPCS: 71045; 72040; 72100; 72170; 93005

== ENCOUNTER 2024-01-13 15:41 | Emergency (ER) | payer OTHER, MEDICARE ==
[~2024-01-13] VITALS: Ht 154.9 cm; Wt 49.9 kg
[2024-01-13 15:46] VITALS: BP 189/61; PULSE 46; RESP 16
[2024-01-13 16:20] LABS: BASOPHILS # (AUTO) 0.04 K/uL (0.00-0.20); BASOPHILS % (AUTO) 0.6 % (0.0-5.0); EOSINOPHILS # (AUTO) 0.21 K/uL (0.00-0.70); EOSINOPHILS % (AUTO) 3.3 % (0.0-8.0); HEMATOCRIT 39.5 % (36-48); IMMATURE GRANULOCYTE ABSOLUTE 0.01 K/uL (0-1); LYMPHOCYTES # (AUTO) 1.9 K/uL (1.0-4.8); LYMPHOCYTES % (AUTO) 29.4 % (21.0-51.0); MEAN CORPUSCULAR HEMOGLOBIN 29.7 pg (27.0-33.0); MEAN CORPUSCULAR HGB CONC 32.4 g/dL (32.0-36.0); MEAN CORPUSCULAR VOLUME 91.6 fL (79-99); MONOCYTES # (AUTO) 0.6 K/uL (0.1-1.0); MONOCYTES % (AUTO) 9.6 % (3.0-13.0); NEUTROPHILS # (AUTO) 3.6 K/uL (1.8-7.7); NEUTROPHILS % (AUTO) 56.9 % (40.0-77.0); PLATELET COUNT (AUTO) 221 K/uL (130-400); RED BLOOD CELL COUNT(AUTO) 4.31 MIL/uL (4.00-5.50); WHITE BLOOD COUNT (AUTO) 6.4 K/uL (4.8-10.8)
[2024-01-13 16:30] LABS: CREATININE 0.6 mg/dL (0.5-1.0); POTASSIUM 3.4 mmol/L (3.5-5.1)
[2024-01-13 16:35] LABS: ALBUMIN 3.4 g/dL (3.5-5.0); BILIRUBIN,TOTAL 1.1 mg/dL (0.2-1.0)
== END 2024-01-13 20:51 | disposition left against medical advice (07) ==
LOC: EDH 15:41
DX: R07.89 Other chest pain (principal); E11.9 Type 2 diabetes mellitus without complications; I10 Essential (primary) hypertension; Z98.890 Other specified postprocedural states; Z86.73 Personal history of transient ischemic attack (TIA), and cerebral infarction without residual deficits; Z79.899 Other long term (current) drug therapy; Z79.2 Long term (current) use of antibiotics; Z79.82 Long term (current) use of aspirin; Z53.29 Procedure and treatment not carried out because of patient's decision for other reasons
CPT/HCPCS: 36415; 71045; 80053; 84484; 85025; 93005

== ENCOUNTER 2024-07-14 05:43 | Emergency (ER) | payer OTHER, MEDICARE ==
[~2024-07-14] VITALS: Ht 154.9 cm; Wt 50.3 kg
--- NOTE | 2024-07-14 05:56 | ERN ---
ED Note History of Present Illness Stated Complaint: C/O CP WITH NUMBNESS TO LEFT ARM Chief Complaint: Chest Pain Time Seen by MD: 05:52 Dictation: This is a 73-year-old female who presented to the emergency room with complaints of chest pain and numbness of left arm. She stated that she started experiencing the pain sounds good around 9 or 10:00 p.m. last night and thought that it maybe musculoskeletal. She could not sleep all night due to pain and as the intensity was high she decided to come into the ER for further evaluation. The pain gets worse with any movement of the arm and also associated with tenderness no diaphoresis palpitations or syncope. 98.2, pulse 66, respirations 20 blood pressure 172/88 with a pulse oximetry of 100% on room air Her chronic medical problems include history of diabetes mellitus, hypertension and history of a TIA Allergies: Coded Allergies: No Known Drug Allergies (Verified Allergy, Unknown, 01/22/16) Home Meds Active Scripts Methylprednisolone (Medrol) 4 Mg Tab.ds.pk, 4 MG PO AD, #1 UNIT Prov:DREW MAC NP 06/02/23 Cephalexin Monohydrate (Keflex) 500 Mg Cap, 500 MG PO TID for 7 Days, #21 CAP Prov:KATHERINE GOODMAN MD 02/20/22 Naproxen (Naproxen) 250 Mg Tablet, 250 MG PO BID for 7 Days, #14 TAB Prov:KATHERINE GOODMAN MD 09/09/21 Aspirin (ASPIRIN 81MG CHEW TAB) 81 Mg Tab.chew, 30 MG PO DAILY for 90 Days, #90 TAB.CHEW Prov:ERIKA ARAGON 05/05/21 Simvastatin (Simvastatin) 20 Mg Tablet, 40 MG PO HS for 30 Days, #30 TAB Prov:ERIKA ARAGON 05/05/21 Reported Medications Tramadol Hcl (Tramadol HCl) 50 Mg Tablet, 50 MG PO TIDP PRN for PAIN LEVEL 6 TO 10, TAB 04/26/21 Acetaminophen (Tylenol Extra Strength) 500 Mg Tablet, 500 MG PO Q4HPRN PRN for PAIN LEVEL 1 TO 5, TAB 03/16/18 Lorazepam (Lorazepam) 0.5 Mg Tablet, 0.5 MG PO HS, TAB 02/24/18 Metoclopramide HCl (Reglan 10 mg Tab) 10 Mg Tablet, 10 MG PO BIDPC, TAB 02/24/18 Esomeprazole Magnesium (Nexium) 40 Mg Capsule.dr, 40 MG PO BIDAC, CAP 02/24/18 Lisinopril (Lisinopril) 20 Mg Tablet, 20 MG PO DAILY, TAB 02/24/18 Past Medical History Past Medical History: Diabetes-Type II, Hypertension, TIA, Other Additional Past Medical Hx: BRADYCARDIA Surgical History: Other Surgical History Other: ABDOMINAL, HIP X 2 Family History: Negative Social History: Negative, Lives with family History: Not Applicable RN Note Reviewed/Agreed w/PFSH: Yes Review of System Dictation Constitutional: Negative for fever,chills, and weight loss Eyes: Negative for injury, pain,redness, and discharge ENT: Negative for injury,pain or swelling Cardiovascular: Positive for chest wall pain, no palpitations, and edema Respiratory: Negative for shortness of breath, cough, and wheezing, Abdomen/GI: Negative for abdominal pain, nausea, vomiting, diarrhea, and constipation Back: Negative for injury and pain : Negative for injury, bleeding and discharge MS/Extremity: Negative for injury and deformity Skin: Negative for rash, and discoloration Neuro: Negative for headache, weakness, numbness, tingling, and seizure Psych: Negative for suicide ideation, homicidal ideation, and hallucinations Initial Vital Sign VS Vital Signs Date Time Temp Pulse Resp B/P (MAP) Pulse Ox O2 Delivery O2 Flow Rate FiO2 07/14/24 05:52 98.2 66 20 172/88 100 Room Air Physical Exam Dictation General: awake, alert, NAD Head/Face: Normocephalic, atraumatic Eyes: PERRL, EOMI, vision at baseline ENT: oral cavity clear, TMs clear, no signs of infection Neck: Trachea midline, supple, no nuchal rigidity Cardiovascular: RRR, normal S1/S2, No MRGs, no JVD Respiratory: CTAB, no respiratory distress, No rales or wheezes Abdomen: Soft, non-tender, non-distended, normal bowel sounds, no guarding or rebound. Skin: Warm, dry, normal turgor, no rash MS/Extremity: Pulses equal, no cyanosis, neurovascular intact, FROM Neuro: COAx4, GCS 15, strength 5/5, CN 2-12 intact, normal cerebellar exam, normal gait, Psych: Normal behavior, mood, and affect normal Extremities-trace edema without any palpable cords, Homans sign is negative Results (Laboratory/Radiology) Laboratory/Radiology Laboratory Tests Test 07/14/24 06:03 07/14/24 06:33 White Blood Count 6.0 K/uL (4.8-10.8) Red Blood Count 4.22 MIL/uL (4.00-5.50) Hemoglobin 12.5 g/dL (12.0-16.0) Hematocrit 38.3 % (36-48) Mean Corpuscular Volume 90.8 fL (79-99) Mean Corpuscular Hemoglobin 29.6 pg (27.0-33.0) Mean Corpuscular Hemoglobin Concent 32.6 g/dL (32.0-36.0) Red Cell Distribution Width 13.1 % (11.0-15.5) Platelet Count 316 K/uL (130-400) Mean Platelet Volume 10.7 fL (7.5-10.5) H Immature Granulocyte % (Auto) 0.3 % (0-1) Neutrophils (%) (Auto) 70.3 % (40.0-77.0) Lymphocytes (%) (Auto) 20.5 % (21.0-51.0) L Monocytes (%) (Auto) 7.4 % (3.0-13.0) Eosinophils (%) (Auto) 0.5 % (0.0-8.0) Basophils (%) (Auto) 1.0 % (0.0-5.0) Neutrophils # (Auto) 4.2 K/uL (1.8-7.7) Lymphocytes # (Auto) 1.2 K/uL (1.0-4.8) Monocytes # (Auto) 0.4 K/uL (0.1-1.0) Eosinophils # (Auto) 0.03 K/uL (0.00-0.70) Basophils # (Auto) 0.06 K/uL (0.00-0.20) Absolute Immature Granulocyte (auto 0.02 K/uL (0-1) Nucleated Red Blood Cells 0.0 % (0.0-0.19) Sodium Level 143 mmol/L (136-145) Potassium Level 3.9 mmol/L (3.5-5.1) Chloride Level 105 mmol/L (101-111) Carbon Dioxide Level 34 mmol/L (21-32) H Blood Urea Nitrogen 17 mg/dL (7-18) Creatinine 0.5 mg/dL (0.5-1.0) Glomerular Filtration Rate Calc 98 mL/min (>90) Random Glucose 124 mg/dL (70-105) H Total Calcium 9.0 mg/dL (8.5-10.1) Total Creatine Kinase 60 U/L (21-232) B-Type Natriuretic Peptide 79 pg/mL (0-100) Troponin I < 0.05 ng/mL (0.00-0.05) Labs Reviewed?: Yes EKG Comment: Twelve lead EKG done on 07/14/2024 at 5:53 a.m. showed a heart rate of 60 [place] interval 174, QRS 89 QT/QTC 408/408. Impression normal sinus rhythm with no acute STT wave changes noted. Small Q's in the anteroseptal leads suggestive of probably an old infarct overall low voltage. Interpreted by ER MD Dr. Nunez ED Course ED Course Orders Procedure Category Date Status Time Vital Signs Per CPOE 07/14/24 Transmitted Routine 05:48 B-Type Natriuretic LAB 07/14/24 Complete Peptide 05:48 Chest 1vw RAD 07/14/24 Taken 05:48 12 Lead Ekg Tracing- EKG 07/14/24 Complete Technical 05:48 Oxygen By Nc/Pulse Ox CPOE 07/14/24 Transmitted 05:48 Maintain Iv CPOE 07/14/24 Transmitted 05:48 Iv Insertion CPOE 07/14/24 Transmitted 05:48 Cardiac Monitoring CPOE 07/14/24 Transmitted 05:48 Pulse Oximetry With CPOE 07/14/24 Transmitted Vs And Prn 05:48 Cbc With Differential LAB 07/14/24 Complete 05:48 Activity: Br W/Brp CPOE 07/14/24 Transmitted With Assist 05:48 Creatine Kinase, Total LAB 07/14/24 Complete 05:48 Urinalysis Profile LAB 07/14/24 Logged 05:48 Troponin Poc Order LAB 07/14/24 Logged Only 05:48 Bedside Troponin-I LAB.ER 07/14/24 In Process (Poc) 05:48 Basic Metabolic Panel LAB 07/14/24 Complete 05:48 Ketorolac PHA 07/14/24 Complete Tromethamine 15mg/Ml 07:00 Current Medications Medications (Trade) Dose Ordered Sig/Rudy Route PRN Reason Start Time Stop Time Status Last Admin Dose Admin Ketorolac Tromethamine (toRADol) 15 mg ONCE ONCE IV 07/14/24 07:00 07/14/24 07:01 DC Vital Signs Date Time Temp Pulse Resp B/P (MAP) Pulse Ox O2 Delivery O2 Flow Rate FiO2 07/14/24 05:52 98.2 66 20 172/88 100 Room Air We will perform diagnostic labs, advanced imaging and administer medications according to the patient's complaint. Once the results are available, will review and personally interpreted the labs to rule out any acute life- threatening emergency the trach require immediate intervention and treatment. I will then re-evaluate the patient after treatment and diagnostic exams have return to determine whether the patient requires any further testing, can safely be discharged home or need further admission to hospital for additional treatment and evaluation. Medical Decision Making MDM MDM: Differential diagnosis: Cervical radiculopathy, degenerative disc disease cervical spondylosis musculoskeletal pain costochondritis Rationale: Tests considered and ordered secondary to shared decision making include: Previous outside records reviewed: Old ER visits. Risk of complication and/or morbidity or mortality of patient management: None Medications-Per medication reconciliation Need for hospitalization: Patient does not meet criteria for hospitalization. Need for emergency major/minor surgery: No There are no social concerns with this patient. Prescription drug management Prescriptions will include symptomatic care Patient's prior external medical records from other ER visits were reviewed by me as indicated. Prior testing and results from previous visits were reviewed. Prior tests were taken into account with medical decision making and resource utilization, independent historian/historians were used to obtain complete medical history. I independently interpreted the test that were performed, results were reviewed by me and considered findings on radiology if ordered. Medical management and examination interpretation discussions were had by me with other qualified healthcare professionals as indicated for the patient's care. Evaluate patient was and/over by previous provider. Patient does have this tender to palpation in the left upper shoulder. As just change with motion. She feels much better stable for outpatient management Problem List Problem List: (1) Acute chest wall pain (2) Cervical radiculopathy due to degenerative joint disease of spine (3) Acute myofascial strain (4) Poorly-controlled hypertension DX & DISP Disposition: Discharge Departure Impression: Primary Impression: Acute chest wall pain Additional Impressions: Acute myofascial strain, Cervical radiculopathy due to degenerative joint disease of spine, Poorly-controlled hypertension Condition: Stable Referrals: QUANG JAMES MD (PCP) JESUSITA NUNEZ MD Jul 14, 2024 05:56 TANNER MOMIN MD Jul 14, 2024 07:08
[2024-07-14 06:31] LABS: BASOPHILS # (AUTO) 0.06 K/uL (0.00-0.20); CREATININE 0.5 mg/dL (0.5-1.0); EOSINOPHILS # (AUTO) 0.03 K/uL (0.00-0.70); EOSINOPHILS % (AUTO) 0.5 % (0.0-8.0); HEMATOCRIT 38.3 % (36-48); IMMATURE GRANULOCYTE ABSOLUTE 0.02 K/uL (0-1); LYMPHOCYTES # (AUTO) 1.2 K/uL (1.0-4.8); LYMPHOCYTES % (AUTO) 20.5 % (21.0-51.0); MEAN CORPUSCULAR HEMOGLOBIN 29.6 pg (27.0-33.0); MEAN CORPUSCULAR HGB CONC 32.6 g/dL (32.0-36.0); MEAN CORPUSCULAR VOLUME 90.8 fL (79-99); MONOCYTES # (AUTO) 0.4 K/uL (0.1-1.0); MONOCYTES % (AUTO) 7.4 % (3.0-13.0); NEUTROPHILS # (AUTO) 4.2 K/uL (1.8-7.7); NEUTROPHILS % (AUTO) 70.3 % (40.0-77.0); PLATELET COUNT (AUTO) 316 K/uL (130-400); POTASSIUM 3.9 mmol/L (3.5-5.1); RED BLOOD CELL COUNT(AUTO) 4.22 MIL/uL (4.00-5.50); RED CELL DISTRIBUTION WIDTH 13.1 % (11.0-15.5)
[2024-07-14 06:45] LABS: B-TYPE NATRIURETIC PEPTIDE 79 pg/mL (0-100)
--- NOTE | 2024-07-14 06:56 | EKG ---
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 : 1950 Requested By: JESUSITA REBOLLAR Order Number: [id number] Reading MD: Hedy Gimenez Measurements Intervals [place] Rate: 60 P: 59 VT: 174 QRS: -38 QRSD: 89 T: 2 QT: 408 QTc: 408 Interpretive Statements Sinus rhythm Left axis deviation Low voltage, precordial leads Probable anteroseptal infarct, old Compared to ECG 01/13/2024 16:00:05 Left-axis deviation now present Low QRS voltage now present Sinus bradycardia no longer present Myocardial infarct finding still present Electronically Signed On 07-15-2024 17:09:13 CASE MONITOR by Hedy Gimenez Please click the below link to view image of tracing.
[2024-07-14] MEDS ORDERED: ketOROlac 15MG/ML VIAL (15MG/ML) IV ONE (07:00)
--- NOTE | 2024-07-14 07:15 | NUR ---
report given to Liz LEONARD
[2024-07-14 08:00] VITALS: BP 103/51; PULSE 52; RESP 16; TEMP 98.4; O2SAT 100
--- NOTE | 2024-07-14 08:00 | NUR ---
patient c/o weakness. dr harman made aware and re-assessed patient. vs stable. patient ambulated t restoroom. no gait disturbances noted.
--- NOTE | 2024-07-14 09:46 | HMCIMG ---
CHEST 1VW REASON: CHEST PAIN COMPARISON: 01/13/2024 FINDINGS: There are stable cardiomegaly. There is no pulmonary vascular congestion. Lungs are clear. Mediastinum and bony thorax appear unremarkable. IMPRESSION: 1. Stable cardiomegaly, no acute finding.
== END 2024-07-14 08:17 | disposition home or self-care (01) ==
LOC: EDH 05:43
DX: R07.89 Other chest pain (principal); M54.12 Radiculopathy, cervical region; M47.9 Spondylosis, unspecified; E11.9 Type 2 diabetes mellitus without complications; I11.9 Hypertensive heart disease without heart failure; I21.9 Acute myocardial infarction, unspecified; Z79.82 Long term (current) use of aspirin; Z79.899 Other long term (current) drug therapy; Z86.73 Personal history of transient ischemic attack (TIA), and cerebral infarction without residual deficits; Z98.890 Other specified postprocedural states
CPT/HCPCS: 99285; 71045; 82550; 84484; 80048; 83880; 85025; 36415; 93005; J1885

== ENCOUNTER 2025-02-01 07:00 | Day surgery (SDC) | payer OTHER, MEDICAID ==
[2025-01-29 12:29] LABS: IMMATURE GRANULOCYTE ABSOLUTE 0.02 K/uL (0-1); NUCLEATED RED BLOOD CELLS 0.0 % (0.0-0.19); PLATELET COUNT (AUTO) 238 K/uL (130-400); RED BLOOD CELL COUNT(AUTO) 4.05 MIL/uL (4.00-5.50); RED CELL DISTRIBUTION WIDTH 13.4 % (11.0-15.5); WHITE BLOOD COUNT (AUTO) 5.7 K/uL (4.8-10.8)
[2025-01-29 12:39] VITALS: BP 199/97; PULSE 51; RESP 15; TEMP 97.3
[2025-01-29 12:40] LABS: CREATININE 0.7 mg/dL (0.5-1.0); GLOMERULAR FILTR. RATE CALC 90.0 mL/min (>90); GLUCOSE,RANDOM 142.0 mg/dL (70-105); SODIUM SERUM 140.0 mmol/L (136-145); UREA NITROGEN, BLOOD 21.0 mg/dL (7-18)
[2025-01-29 12:44] LABS: INR 0.97 (0.85-1.15)
--- NOTE | 2025-01-30 09:34 | EKG ---
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
[~2025-02-01] VITALS: Ht 154.9 cm; Wt 50.7 kg
[~2025-02-01 07:00] MED LIST changes: -ACET-2743 PO; -ASPI-1005 PO; -CEPH500B PO; +GABA-529 PO; +LINZESS PO; +LISI10TA24 PO; -LISI20TA24 PO; -LORA0.5T2 PO; +METO10TA3 PO; -METO10TA41 PO; -NAPR-1196 PO; +PROM12.513 PO; -SIMV-43 PO; +SUCR1ORA15 PO; -TRAM50TA4 PO
[2025-02-01 07:15] VITALS: BP 173/86; PULSE 58; RESP 18; TEMP 97.7
[2025-02-01] MEDS: LIDOCAINE HCL 2% VISCOUS 15 ML UDCUP PO ONE (09:30)
[2025-02-01 10:10] VITALS: BP 138/79; PULSE 58; RESP 15
[2025-02-01 10:20] VITALS: BP 118/51; PULSE 76; RESP 14
[2025-02-01] MEDS: MIDAZOLAM HCL 1 MG/ML 2ML VIAL IVP ONE ×2 (10:25→10:26)
[2025-02-01] MEDS: 0.9%NACL 1000ML 1,000 ML IV SCH (10:26)
[2025-02-01 10:30] VITALS: BP 111/53; PULSE 64; RESP 13
[2025-02-01 10:40] VITALS: BP 117/53; PULSE 64; RESP 14
[2025-02-01 10:50] VITALS: BP 112/48; PULSE 59; RESP 12
--- NOTE | 2025-02-01 11:00 | NUR ---
BOTH PT AND SON GIVEN VERBAL AND WRITTEN DISCHARGE INSTRUCTIONS. IV REMOVED SITE ASYMPTOMATIC. PT TAKEN OUT VIA WHEELCHAIR SON DRIVING.
--- NOTE | 2025-02-04 00:15 | HMCSR ---
APPROVED REPORT EXAM: Transesophageal echocardiogram with color flow Doppler. INDICATION ICD: Acute and subacute endocarditis, unspecified I33.9 Reason For Test : Rule out endocarditis. PROCEDURE After obtaining informed consent, patient underwent transesophageal echo in the Day Patient Room 15. 15 mL 2% Viscous Lidocaine was given as a topical anesthetic prior to the administration of the consc ious sedation. Type of Sedation: Conscious Sedation Sedation was administered by Lv Irizarry RN. Sedation was achieved with Versed 2 mg, Fentanyl 50mcg intravenously. Transesophageal probe was inserted and advanced into esophagus without difficulty by Dr Gerber. ALMITA was performed and images were obtained, probe was removed without complications. Throughout the procedure, the blood pressure, pulse oximetry, cardiac rhythm, and rate were monitored . The patient tolerated the procedure without adverse effects. Recovery from conscious sedation was une ventful and vital signs were stable. Left Ventricle The left ventricle is normal in size. No regional wall motion abnormalities were seen. There is jeanette l left ventricular wall thickness. Left ventricle systolic function is low normal, estimated LVEF is 50-55%. Indeterminate diastolic function. Right Ventricle The right ventricle is normal size. The right ventricular systolic function is normal. Atria The left atrium size is normal. The interatrial septum is intact with no evidence for an atrial septa l defect by color flow doppler. The right atrium size is normal. Aortic Valve The aortic valve is normal in structure and function. The leaflets are mildly thickened and calcified . Trace aortic regurgitation. There is small size, freely mobile, echodense mass seen on the noncoron eli cusp of the aortic valve. There is no aortic valvular stenosis. Mitral Valve The mitral valve is normal in structure and function. Mild mitral regurgitation. No obvious echodens e masses or vegetations were seen on the mitral valve. There is no mitral valve stenosis. Tricuspid Valve The tricuspid valve is normal in structure and function. Mild tricuspid regurgitation. No obvious ech odense masses or vegetations were seen on the tricuspid valve. Pulmonic Valve Pulmonic valve is not well visualized. Great Vessels The aortic root is normal in size. Pericardium No pericardial effusion. Conclusion There is normal left ventricular wall thickness. No regional wall motion abnormalities were seen. Left ventricle systolic function is low normal, estimated LVEF is 50-55%. Indeterminate diastolic function. The aortic valve is normal in structure and function. The leaflets are mildly thickened and calcifie d. There is small size, freely mobile, echodense mass seen on the noncoronary cusp of the aortic valve. Trace aortic regurgitation. No obvious echodense masses or vegetations were seen on the mitral valve. Mild mitral regurgitation. No obvious echodense masses or vegetations were seen on the tricuspid valve. Mild tricuspid regurgitation. No pericardial effusion. The above-mentioned findings are concerning for bacterial endocarditis affecting the aortic valve. C linical correlation is advised.
== END 2025-02-01 11:10 | disposition home or self-care (01) ==
LOC: DAH 07:00
PROVIDERS: ATTEND Internal Medicine Cardiovascular Disease
DX: I33.9 Acute and subacute endocarditis, unspecified (principal); I08.1 Rheumatic disorders of both mitral and tricuspid valves; I10 Essential (primary) hypertension; K21.9 Gastro-esophageal reflux disease without esophagitis; G47.33 Obstructive sleep apnea (adult) (pediatric); R00.1 Bradycardia, unspecified; R00.2 Palpitations; R07.9 Chest pain, unspecified; R53.1 Weakness; Z85.028 Personal history of other malignant neoplasm of stomach; Z86.73 Personal history of transient ischemic attack (TIA), and cerebral infarction without residual deficits; Z20.822 Contact with and (suspected) exposure to COVID-19; Z79.899 Other long term (current) drug therapy; Z98.890 Other specified postprocedural states
CPT/HCPCS: 80048; 83880; 85025; 85610; 85730; 36415; 93005; 99152; 99153; 93325; 93312; J3010; J7030; J0360; J2250 ×2; A4615; A4215; A4223 ×3; A4657; A7002; A4222; A4221; A4663; A4216; A4606; G0500

== ENCOUNTER 2025-05-14 18:29 | Emergency (ER) | payer OTHER, MEDICAID ==
[~2025-05-14] VITALS: Ht 154.9 cm; Wt 49.4 kg
--- NOTE | 2025-05-14 20:13 | ERN ---
ED Note History of Present Illness Stated Complaint: INSECT BITE TO LEFT FOOT Chief Complaint: Insect Bite Time Seen by MD: 19:12 Time Seen by Midlevel: 19:13 Dictation: 74-year-old female presents to the emergency department due to reported having a stinging sensation to the left foot. She states that she was at her neighbor's house when she felt a sharp sting to the left foot. The patient states that she believes that she must has been stung by an insect but is not able to verify it. Currently, she reports having any fever or chills. At this time, she rates her level of discomfort as a 4/10. Upon initial evaluation, the patient presents in no acute distress. Allergies: Coded Allergies: No Known Drug Allergies (Verified Allergy, Unknown, 01/22/16) mesalamine (Unverified Allergy, Unknown, 07/14/24) ondansetron (Unverified Allergy, Unknown, 07/14/24) Emergency Care VETERANS' COORDINATOR: None Home Meds Active Scripts Methylprednisolone (Medrol) 4 Mg Tab.ds.pk, 4 MG PO AD, #1 UNIT Prov:DREW MAC 06/02/23 Reported Medications Metoclopramide HCl (Metoclopramide HCl) 10 Mg Tablet, 10 MG PO DAILY, TAB 01/29/25 Sucralfate (Sucralfate) 1 Gram/10 Ml Oral.susp, 1 GM PO DAILY, ML 01/29/25 [Linzess] No Conflict Check, 72 MCG PO AD PRN for CONSTIPATION 01/29/25 Promethazine HCl (Promethazine HCl) 12.5 Mg Tablet, 12.5 MG PO Q6HPRN PRN for NAUSEA/VOMITING, TAB 01/29/25 Gabapentin (Gabapentin) 100 Mg Capsule, 100 MG PO BID, CAP 01/29/25 Lisinopril (Lisinopril) 10 Mg Tablet, 10 MG PO AM, TAB 01/29/25 Esomeprazole Magnesium (Nexium) 40 Mg Capsule.dr, 40 MG PO AM, CAP 02/24/18 Past Medical History Past Medical History: Diabetes-Type II, Hypertension, TIA, Other Additional Past Medical Hx: BRADYCARDIA Surgical History: Other Surgical History Other: ABDOMINAL, HIP X 2 , HERNIA Family History: Negative Social History: Negative, Lives with family History: Not Applicable RN Note Reviewed/Agreed w/PFSH: Yes Review of System Dictation MS/Extremity: Left foot pain Initial Vital Sign VS Vital Signs Date Time Temp Pulse Resp B/P (MAP) Pulse Ox O2 Delivery O2 Flow Rate FiO2 05/14/25 19:03 97.3 58 18 160/77 100 05/14/25 20:16 Room Air* 0 21 Physical Exam Dictation GENERAL: AWAKE, ALERT, NAD HEAD/FACE: NORMOCEPHALIC, ATRAUMATIC EYES: PERRL, EOMI ENT: ORAL MUCOSA MOIST NECK: TRACHEA MIDLINE, SUPPLE CARDIOVASCULAR: RRR, NO EDEMA RESPIRATORY: SYMMETRICAL, NON-LABORED ABDOMEN: SOFT, NON-TENDER, NON-DISTENDED, NO GUARDING. SKIN: WARM, DRY, GOOD TURGOR, NO RASH MS/EXTREMITY: SMALL AMOUNT OF ERYTHEMA, WARMTH AND TENDERNESS TO THE DORSAL ASPECT OF THE LEFT FOOT. NEURO: COAX4, GCS 15, STEADY GAIT, PSYCH: NORMAL BEHAVIOR, MOOD, AND AFFECT NORMAL ED Course ED Course Orders Procedure Category Date Status Time Diphenhydramine Hcl PHA 05/14/25 In Process (Benadryl Inj) 19:30 Dexamethasone 4mg/Ml PHA 05/14/25 In Process 1ml Vial (Dexametha 19:30 Current Medications Medications (Trade) Dose Ordered Sig/Rudy Route PRN Reason Start Time Stop Time Status Last Admin Dose Admin Dexamethasone Sodium Phosphate (dexaMETHasone 4MG/ML 1ML VIAL) 6 mg ONCE IM 05/14/25 19:30 05/14/25 23:30 05/14/25 20:15 Diphenhydramine HCl (BENAdryl INJ) 25 mg ONCE IM 05/14/25 19:30 05/14/25 23:30 05/14/25 20:15 Vital Signs Date Time Temp Pulse Resp B/P (MAP) Pulse Ox O2 Delivery O2 Flow Rate FiO2 05/14/25 20:16 98.1 56 15 187/75 99 Room Air* 0 21 05/14/25 19:03 97.3 58 18 160/77 100 Medical Decision Making MDM MDM: DIFFERENTIAL DIAGNOSIS: INSECT BITE, FOR CONTUSION, CELLULITIS. RATIONALE: TESTS CONSIDERED AND ORDERED SECONDARY TO SHARED DECISION MAKING INCLUDE: PREVIOUS OUTSIDE RECORDS REVIEWED: OLD ER VISITS. RISK OF COMPLICATION AND/OR MORBIDITY OR MORTALITY OF PATIENT MANAGEMENT: NONE MEDICATIONS-PER MEDICATION RECONCILIATION NEED FOR HOSPITALIZATION: PATIENT DOES NOT MEET CRITERIA FOR HOSPITALIZATION. NEED FOR EMERGENCY MAJOR/MINOR SURGERY: NO THERE ARE NO SOCIAL CONCERNS WITH THIS PATIENT. PRESCRIPTION DRUG MANAGEMENT PRESCRIPTIONS WILL INCLUDE SYMPTOMATIC CARE PATIENT'S PRIOR EXTERNAL MEDICAL RECORDS FROM OTHER ER VISITS WERE REVIEWED BY ME INDICATED. PRIOR TESTING AND RESULTS FROM PREVIOUS VISITS WERE REVIEWED. PRIOR TESTS WERE TAKEN INTO ACCOUNT WITH MEDICAL DECISION MAKING AND RESOURCE UTILIZATION, INDEPENDENT HISTORIAN/HISTORIANS WERE USED TO OBTAIN COMPLETE MEDICAL HISTORY. I INDEPENDENTLY INTERPRETED THE TEST THAT WERE PERFORMED, RESULTS WERE REVIEWED BY ME AND CONSIDERED FINDINGS ON RADIOLOGY IF ORDERED. MEDICAL MANAGEMENT AND EXAMINATION INTERPRETATION DISCUSSIONS WERE HAD BY ME WITH OTHER QUALIFIED HEALTHCARE PROFESSIONALS INDICATED FOR THE PATIENT'S CARE. DX & DISP Disposition: Discharge Departure Impression: Primary Impression: Insect bite of left foot Condition: Stable Referrals: QUANG JAMES MD (PCP) Time of Disposition: 20:43 BETSY BALL May 14, 2025 20:13
[2025-05-14 20:16] VITALS: BP 187/75; PULSE 56; RESP 15; TEMP 98.1; O2SAT 99
== END 2025-05-14 21:01 | disposition home or self-care (01) ==
LOC: EDH 18:29
DX: S90.862A Insect bite (nonvenomous), left foot, initial encounter (principal); E11.9 Type 2 diabetes mellitus without complications; I10 Essential (primary) hypertension; Z79.899 Other long term (current) drug therapy; Z86.73 Personal history of transient ischemic attack (TIA), and cerebral infarction without residual deficits; W57.XXXA Bitten or stung by nonvenomous insect and other nonvenomous arthropods, initial encounter; Y93.89 Activity, other specified; Y92.89 Other specified places as the place of occurrence of the external cause; Y99.8 Other external cause status
CPT/HCPCS: 99284; 96372 ×2; J1100; J1200